=== PATIENT | male | born 1945 | race Caucasian/White ===

== ENCOUNTER → 2017-03-11 | Outpatient (CLI) | payer MEDICARE, OTHER ==
[2017-03-11 13:00] LABS: CHOL/HDL RATIO 5.9; LDL/HDL RATIO 4.2 (0.5-3.0)
== END | disposition home or self-care (01) ==
LOC: CFH 08:50
PROVIDERS: ATTEND Internal Medicine Cardiovascular Disease
DX: I10 Essential (primary) hypertension (principal); E78.2 Mixed hyperlipidemia
CPT/HCPCS: 36415; 80061

== ENCOUNTER → 2017-10-04 | Outpatient (CLI) | payer MEDICARE, OTHER ==
[2017-10-04 12:46] LABS: CHOL/HDL RATIO 5.6; LDL/HDL RATIO 3.9 (0.5-3.0)
== END | disposition home or self-care (01) ==
LOC: CFH 08:58
PROVIDERS: ATTEND Family Medicine
DX: I10 Essential (primary) hypertension (principal); E78.5 Hyperlipidemia, unspecified
CPT/HCPCS: 36415; 80061

== ENCOUNTER → 2018-05-30 | Outpatient (CLI) | payer MEDICARE, OTHER | END | disposition home or self-care (01) | LOC: CVU 06:35 | PROVIDERS: ATTEND Podiatrist Foot & Ankle Surgery | DX: I70.213 Atherosclerosis of native arteries of extremities with intermittent claudication, bilateral legs (principal); L97.519 Non-pressure chronic ulcer of other part of right foot with unspecified severity; E78.5 Hyperlipidemia, unspecified; Z95.2 Presence of prosthetic heart valve; Z95.1 Presence of aortocoronary bypass graft | CPT/HCPCS: 93922; 93925 ==

== ENCOUNTER 2018-06-12 08:52 | Day surgery (SDC) | payer MEDICARE, OTHER ==
[2018-06-09 09:40] LABS: BASOPHILS # (AUTO) 0.03 x10^3/uL (0-0.1); BASOPHILS % (AUTO) 1 % (0-1); EOSINOPHILS # (AUTO) 0.35 x10^3/uL (0-0.4); EOSINOPHILS % (AUTO) 5 % (1-7); LYMPHOCYTES # (AUTO) 1.32 x10^3/uL (1-3.4); LYMPHOCYTES % (AUTO) 20 % (22-44); MD NO; MEAN CORPUSCULAR HEMOGLOBIN 30.4 pg (27.5-34.5); MEAN CORPUSCULAR VOLUME 89.7 fL (81-97); MEAN PLATELET VOLUME 8.5 fL (7.4-10.4); MONOCYTES # (AUTO) 0.63 x10^3/uL (0.2-0.8); MONOCYTES % (AUTO) 9 % (2-9); NEUTROPHILS # (AUTO) 4.38 x10^3/uL (1.8-6.8); NEUTROPHILS % (AUTO) 65 % (42-75); PLATELET COUNT 267 x10^3/uL (130-400); RED BLOOD COUNT 4.75 x10^6/uL (4.38-5.82); RED CELL DISTRIBUTION WIDTH 13.4 % (9.4-14.8)
[2018-06-09 09:56] LABS: CHLORIDE 112 mmol/L (98-107)
[2018-06-09 10:03] LABS: ANION GAP 6 mmol/L (5-15); CREATININE 1.04 mg/dL (0.7-1.3)
[~2018-06-12] VITALS: Ht 177.8 cm; Wt 100.9 kg
[~2018-06-12 08:52] MED LIST: ASPI-496 PO; METO50TA82 PO
[2018-06-12] MEDS ORDERED: SODIUM CHLORIDE 0.9% 1,000 ML IV SCH ×2 (13:57→19:00)
[2018-06-12] MEDS ORDERED: CEFAZOLIN 2,000 MG in SODIUM CHLORIDE 0.9% 50 ML IV ONE ×2 (14:00→15:00)
[2018-06-12 14:02] VITALS: BP 169/89
[2018-06-12] MEDS ORDERED: LIDOCAINE-MPF 1%, 5ML ONE (15:55)
[2018-06-12] MEDS ORDERED: VISIPAQUE 270 MG/ML, 50ML BOTTLE ONE (16:00)
[2018-06-12] MEDS ORDERED: HEPARIN 1,000 UNITS/ML, 10ML ONE (16:21)
[2018-06-12] MEDS ORDERED: FENTANYL PF 100 MCG/2ML ONE (16:21)
[2018-06-12] MEDS ORDERED: NALOXONE 1 MG/ML, 2ML ONE (16:21)
[2018-06-12] MEDS ORDERED: MIDAZOLAM 1 MG/ML, 5ML ONE (16:21)
[2018-06-12] MEDS ORDERED: NITROGLYCERIN 5 MG/ML, 10ML ONE (16:21)
[2018-06-12] MEDS ORDERED: FLUMAZENIL 0.1 MG/1 ML, 5ML ONE (16:21)
[2018-06-12] MEDS ORDERED: PROTAMINE SULFATE 10 MG/ML, 25ML ONE (16:21)
[2018-06-12] MEDS ORDERED: hydrALAzine 20 MG/ML, 1ML ONE (16:40)
[2018-06-12] MEDS ORDERED: CLOPIDOGREL 300 MG TABLET ONE (17:25)
[2018-06-12 18:31] VITALS: BP 198/100
[2018-06-12] MEDS: hydrALAzine 20 MG/ML, 1ML IV PRN ×2 (18:33→20:08)
[2018-06-12] MEDS ORDERED: ONDANSETRON 2MG/ML, 2ML IVPush PRN (19:00)
[2018-06-12] MEDS ORDERED: morphine SULFATE 10 MG/ML, 1ML IVPush PRN (19:00)
[2018-06-12] MEDS ORDERED: HYDROcodone/APAP 5/325 TABLET PO PRN (19:00)
[2018-06-12] MEDS ORDERED: LABETALOL 5 MG/ML SYRINGE IVPush PRN (20:30)
[2018-06-13] MEDS ORDERED: METOPROLOL TARTRATE 100 MG TABLET PO SCH (09:00)
[2018-06-13] MEDS ORDERED: ASPIRIN 81 MG TABLET CHEW PO SCH (09:00)
== END 2018-06-12 21:30 | disposition home or self-care (01) ==
LOC: SDC 08:52 → 4NOR 18:17 → SDC 21:30
PROVIDERS: ATTEND Surgery
DX: I70.221 Atherosclerosis of native arteries of extremities with rest pain, right leg (principal); I65.23 Occlusion and stenosis of bilateral carotid arteries; I25.10 Atherosclerotic heart disease of native coronary artery without angina pectoris; I10 Essential (primary) hypertension; E66.3 Overweight; Z79.82 Long term (current) use of aspirin; Z79.899 Other long term (current) drug therapy; Z95.5 Presence of coronary angioplasty implant and graft
CPT/HCPCS: 36415; 37224; 75625; 75716; 80048; 85025; 93880; 99156; 99157; C1725; C1751; C1769; C1894; J0360; J0690; J1644; J2250; J3010; J7030; Q9966; 75630; G0378; J2720; J2310

== ENCOUNTER → 2018-12-28 | Outpatient (CLI) | payer MEDICARE, OTHER | END | disposition home or self-care (01) | LOC: CVU 06:32 | PROVIDERS: ATTEND Surgery | DX: I08.1 Rheumatic disorders of both mitral and tricuspid valves (principal); I65.23 Occlusion and stenosis of bilateral carotid arteries; R09.89 Other specified symptoms and signs involving the circulatory and respiratory systems; I25.10 Atherosclerotic heart disease of native coronary artery without angina pectoris; Z95.818 Presence of other cardiac implants and grafts | CPT/HCPCS: 93306; 93880; 93922; 93925 ==

== ENCOUNTER 2019-01-22 09:11 | Day surgery (SDC) | payer MEDICARE, OTHER ==
[~2019-01-22] VITALS: Ht 177.8 cm; Wt 103.1 kg
[2019-01-22] MEDS ORDERED: SODIUM CHLORIDE 0.9% 1,000 ML IV SCH (09:54)
[2019-01-22] MEDS ORDERED: CLOP75TA PO (10:00)
[2019-01-22 10:23] LABS: BASOPHILS # (AUTO) 0.04 x10^3/uL (0-0.1); BASOPHILS % (AUTO) 1 % (0-1); EOSINOPHILS % (AUTO) 4 % (1-7); LYMPHOCYTES # (AUTO) 1.32 x10^3/uL (1-3.4); LYMPHOCYTES % (AUTO) 19 % (22-44); MD NO; MEAN CORPUSCULAR HEMOGLOBIN 30.5 pg (27.5-34.5); MEAN CORPUSCULAR HGB CONC 33.4 g/dL (33.2-36.2); MEAN CORPUSCULAR VOLUME 91.6 fL (81-97); MEAN PLATELET VOLUME 8.7 fL (7.4-10.4); MONOCYTES # (AUTO) 0.55 x10^3/uL (0.2-0.8); MONOCYTES % (AUTO) 8 % (2-9); NEUTROPHILS % (AUTO) 69 % (42-75); PLATELET COUNT 270 x10^3/uL (130-400); RED BLOOD COUNT 5.21 x10^6/uL (4.38-5.82); RED CELL DISTRIBUTION WIDTH 13.2 % (9.4-14.8)
[2019-01-22] MEDS ORDERED: LIDOCAINE 1%, 10ML ONE (10:24)
[2019-01-22] MEDS ORDERED: CEFAZOLIN 2,000 MG in SODIUM CHLORIDE 0.9% 50 ML IV STA (10:28)
[2019-01-22] MEDS ORDERED: PLEASE ENTER HEIGHT AND WEIGHT MC SCH (10:30)
[2019-01-22 10:34] LABS: ANION GAP 7 mmol/L (5-15); CALCIUM 8.7 mg/dL (8.5-10.1); CHLORIDE 110 mmol/L (98-107); CREATININE 1.13 mg/dL (0.7-1.3)
[2019-01-22 10:41] VITALS: BP 185/81
[2019-01-22] MEDS ORDERED: VISIPAQUE 270 MG/ML, 50ML BOTTLE ONE (11:00)
[2019-01-22] MEDS ORDERED: FENTANYL PF 100 MCG/2ML ONE (11:47)
[2019-01-22] MEDS ORDERED: HEPARIN 1,000 UNITS/ML, 10ML ONE (11:47)
[2019-01-22] MEDS ORDERED: FLUMAZENIL 0.1 MG/1 ML, 5ML ONE (11:47)
[2019-01-22] MEDS ORDERED: MIDAZOLAM 1 MG/ML, 5ML ONE (11:48)
[2019-01-22] MEDS ORDERED: PROTAMINE SULFATE 10 MG/ML, 25ML ONE (11:48)
[2019-01-22] MEDS ORDERED: NALOXONE 1 MG/ML, 2ML ONE (11:48)
[2019-01-22] MEDS ORDERED: hydrALAzine 20 MG/ML, 1ML ONE ×2 (13:45→15:30)
[2019-01-22] MEDS ORDERED: CLOPIDOGREL 75 MG TABLET PO ONE (15:00)
[2019-01-22] MEDS ORDERED: hydrALAzine 20 MG/ML, 1ML IV ONE (15:30)
== END 2019-01-22 16:55 | disposition home or self-care (01) ==
LOC: OUT 09:11
PROVIDERS: ATTEND Surgery
DX: I70.211 Atherosclerosis of native arteries of extremities with intermittent claudication, right leg
CPT/HCPCS: 36415; 37224; 75716; 80048; 85025; 99156; 99157; C1751; C1760; C1769; C1894; C2623; J0360; J0690; J1644; J2250; J3010; J7030; Q9966; 75630; J2720; J2310

== ENCOUNTER → 2019-01-29 | Outpatient (CLI) | payer MEDICARE, OTHER ==
[~2019-01-29] MED LIST changes: +CLOP75TA PO; +REGADENOSON 0.4 MG/5 ML SYRINGE ONE
== END | disposition home or self-care (01) ==
LOC: CFH 07:28
PROVIDERS: ATTEND Internal Medicine
DX: I25.89 Other forms of chronic ischemic heart disease (principal); I35.0 Nonrheumatic aortic (valve) stenosis; I25.810 Atherosclerosis of coronary artery bypass graft(s) without angina pectoris
CPT/HCPCS: 78452; 93017; A9502; J2785

== ENCOUNTER → 2019-02-08 | Outpatient (CLI) | payer MEDICARE, OTHER ==
[~2019-02-08] MED LIST changes: +ISOS30TA8 PO; +NITR0.4T28 SL; -REGADENOSON 0.4 MG/5 ML SYRINGE ONE
[2019-02-08 13:04] LABS: ANION GAP 3 mmol/L (5-15); CALCIUM 8.7 mg/dL (8.5-10.1); CHLORIDE 111 mmol/L (98-107)
[2019-02-08 13:05] LABS: CREATININE 1.37 mg/dL (0.7-1.3)
[2019-02-08 13:07] LABS: BASOPHILS # (AUTO) 0.04 x10^3/uL (0-0.1); BASOPHILS % (AUTO) 1 % (0-1); EOSINOPHILS # (AUTO) 0.36 x10^3/uL (0-0.4); EOSINOPHILS % (AUTO) 5 % (1-7); LYMPHOCYTES # (AUTO) 1.21 x10^3/uL (1-3.4); LYMPHOCYTES % (AUTO) 17 % (22-44); MD NO; MEAN CORPUSCULAR HEMOGLOBIN 30.1 pg (27.5-34.5); MEAN CORPUSCULAR HGB CONC 33.6 g/dL (33.2-36.2); MEAN CORPUSCULAR VOLUME 89.4 fL (81-97); MEAN PLATELET VOLUME 8.9 fL (7.4-10.4); MONOCYTES # (AUTO) 0.51 x10^3/uL (0.2-0.8); MONOCYTES % (AUTO) 7 % (2-9); NEUTROPHILS # (AUTO) 4.88 x10^3/uL (1.8-6.8); NEUTROPHILS % (AUTO) 70 % (42-75); PLATELET COUNT 287 x10^3/uL (130-400); RED BLOOD COUNT 4.93 x10^6/uL (4.38-5.82); RED CELL DISTRIBUTION WIDTH 13.2 % (9.4-14.8)
== END | disposition home or self-care (01) ==
LOC: CFH 08:02
PROVIDERS: ATTEND Internal Medicine Cardiovascular Disease
DX: E78.2 Mixed hyperlipidemia (principal); I10 Essential (primary) hypertension; I25.810 Atherosclerosis of coronary artery bypass graft(s) without angina pectoris; I35.0 Nonrheumatic aortic (valve) stenosis
CPT/HCPCS: 36415; 80048; 85025

== ENCOUNTER 2019-02-09 07:18 | Day surgery (SDC) | payer MEDICARE, OTHER ==
[~2019-02-09] VITALS: Ht 177.8 cm; Wt 104.5 kg
[~2019-02-09 07:18] MED LIST changes: -ISOS30TA8 PO; -NITR0.4T28 SL
[2019-02-09] MEDS ORDERED: SODIUM CHLORIDE 0.9% 1,000 ML IV SCH ×2 (07:32→10:50)
[2019-02-09 07:51] VITALS: BP 189/125
[2019-02-09] MEDS ORDERED: ASPIRIN 325 MG TABLET EC PO ONE (08:00)
[2019-02-09] MEDS ORDERED: CLOPIDOGREL 75 MG TABLET PO ONE (08:00)
[2019-02-09] MEDS ORDERED: NITR0.4T28 SL (08:11)
[2019-02-09] MEDS ORDERED: ISOS30TA8 PO (08:11)
[2019-02-09] MEDS ORDERED: ASPIRIN 325 MG TABLET EC ONE (08:16)
[2019-02-09] MEDS ORDERED: HEPARIN 1,000 UNITS/ML, 10ML ONE (08:36)
[2019-02-09] MEDS ORDERED: FENTANYL PF 100 MCG/2ML ONE (08:36)
[2019-02-09] MEDS ORDERED: VERAPAMIL 2.5 MG/ML, 2ML ONE (08:36)
[2019-02-09] MEDS ORDERED: LIDOCAINE 1%, 20ML ONE (08:36)
[2019-02-09] MEDS ORDERED: MIDAZOLAM 1 MG/ML, 5ML ONE (08:36)
[2019-02-09] MEDS ORDERED: BIVALIRUDIN 250 MG ONE (08:36)
[2019-02-09] MEDS ORDERED: NITROGLYCERIN 5 MG/ML, 10ML ONE (08:36)
== END 2019-02-09 12:57 | disposition home or self-care (01) ==
LOC: CACL 07:18
PROVIDERS: ATTEND Internal Medicine Cardiovascular Disease
DX: I25.118 Atherosclerotic heart disease of native coronary artery with other forms of angina pectoris (principal); I10 Essential (primary) hypertension; E78.00 Pure hypercholesterolemia, unspecified; I35.0 Nonrheumatic aortic (valve) stenosis; Z79.82 Long term (current) use of aspirin; Z95.1 Presence of aortocoronary bypass graft
CPT/HCPCS: 93455; 99156; 99157; C1769; C1894; J1644; J2250; J3010; Q9967; J0583